=== PATIENT | male | born 1990 | race Caucasian/White ===

== ENCOUNTER 2024-11-21 12:51 | Emergency (ER) | payer BC, SELFPAY ==
[2024-11-21 13:45] VITALS: BP 132/81; PULSE 84; RESP 18; TEMP 36.9; O2SAT 96; BMI 28.8
--- NOTE | 2024-11-21 14:11 | EDNOTE_ITS ---
<Statement entered by Radha Krause MD - 11/22/24 06:02> As co-signing physician, I was present and available for consult prn. I concur with the plan and care as documented by the midlevel provider. ED Back Injury Pain RME/HPI General Chief Complaint: Back Pain/Injury Stated Complaint: MY KIDNEYS ARE HURTING Time Seen by Provider: 11/21/24 13:50 Arrival date/time: 11/21/24 12:51 Limitations: no limitations RME / HPI RME / HPI Narrative: 34-year-old male here for my kidneys are hurting . States he is having this right flank pain x 4 days. Worried because had a sharp pain on his right side and then started to sweat and wanted to vomit but did not. No diarrhea. No fever. No burning with urination. No history of diabetes. No history of abdominal surgeries. Related Data Previous Rx's ?Medication ?Instructions ?Recorded emtricitabine 200 mg-tenofovir 1 tab PO Q24H #30 tabs 11/12/20 disoproxil fumarate 300 mg tablet raltegravir 400 mg tablet 400 mg PO BID #60 tabs 11/12 IBU 800 mg tablet (ibuprofen) 800 mg PO Q6H PRN pain # 30 tabs 11/21/24 ciprofloxacin HCl 500 mg tablet 500 mg PO Q12H 10 days #20 tabs 11/21/24 (Cipro) hydrocodone 5 mg-acetaminophen 325 1 tab PO BID PRN pa in 7 days #14 11/21/24 mg tablet tabs tamsulosin 0.4 mg capsule (Flomax) 0.4 mg PO QDAY #14 caps 11/21/24 Allergies Allergy/AdvReac Type Severity Reaction Status Date / Time No Known Allergies Allergy Unverified 11/21/24 14:14 Review of Systems Review of Systems Systems Reviewed: All systems reviewed, normal except as documented Constitutional Constitutional: Denies fever(s) ED Exam General Limitations: Present no limitations General appearance: Present alert and in no apparent distress Eye Eye exam: Present normal appearance, PERRL and EOMI Respiratory Respiratory exam: Present normal lung sounds bilaterally Cardiovascular Cardiovascular exam: Present regular rate, normal rhythm and normal heart sounds Abdominal Exam Abdominal exam: Present tenderness (right cvat ) and normal bowel sounds Extremities Exam Extremities exam: Present normal inspection and full ROM Back Exam Back exam: Present normal inspection and full ROM Psychiatric Psychiatric exam: Present normal affect and normal mood Skin Skin exam: Present warm, dry, intact and normal color Course Quality Measures none Orders Category Date Time Status CT abdomen pelvis wo con Stat Exams 11/21/24 14:11 Completed CBC Stat Lab 11/21/24 15:08 Completed CMP [Comprehensive Metabolic Panel] Stat Lab 11/21/24 15:08 Completed Drug Screen,Urine Stat Lab 11/21/24 14:31 Completed UA [Urinalysis] Stat Lab 11/21/24 14:31 Completed HYDROcodone*/APAP 5/325 [[place] 5/325] Med 11/21/24 14:11 Discontinued 1 tab PO X1 ONE Ketorolac Inj [Toradol Inj] Med 11/21/24 14:11 Discontinued 30 mg IM X1 ONE Vital Signs Vital signs: Vital Signs Temperature 98.5 F 11/21/24 13:45 Pulse Rate 84 11/21/24 13:45 Respiratory Rate 18 11/21/24 13:45 Blood Pressure 132/81 H 11/21/24 13:45 Pulse Oximetry (%) 96 11/21/24 13:45 Oxygen Delivery Method Room Air 11/21/24 13:45 Back Pain / Injury Patient data External records reviewed:: [facility] previous records Clinical information provided by:: patient Social determinants that could affect healthcare access:: other (specify) (Difficulty getting appoint with PCP) Patient has the following chronic illnesses:: none How is presenting disease/condition affected by chronic disease/condition?: no chronic disease Evaluation data The following diagnostics were reviewed and interpreted by me:: lab results and radiology exam(s) Lab and/or radiology exams considered but not ordered:: all imaging considered was ordered Interpretation Summary: ct with fatty liver ua with hematuria elevated wb15 which can be reactive alt 65, consistent with findings from ct Medications / Prescriptions Medications or Prescriptions considered but not ordered:: all meds considered were given Medication administrations:: Medication Administration History Discontinued Medications Hydrocodone Bitart/Acetaminophen (Hydrocodone/Apap 5/325 Tablet) 1 tab PO X1 ONE Stop: 11/21/24 14:12 Last Admin: 11/21/24 14:45 Dose: 1 tab Documented By: OA Ketorolac Tromethamine (Ketorolac Inj 30 Mg/Ml Vial) 30 mg IM X1 ONE Stop: 11/21/24 14:12 Last Admin: 11/21/24 14:44 Dose: 30 mg Documented By: OA see above Consultations Consultation(s) initiated? (list below): No Diagnosis Differential diagnosis back pain/injury: lumbar radiculopathy, sciatica, strain of lumbar region, renal colic, pyelonephritis and discitis Most likely diagnosis given after review of the tests above:: renal colic hematuria fatty liver djd of lumbar Admission Indicated Admission indicated?: not indicated Admission Request Was there a request for admission?: No Disposition Plan Disposition Plan: Discharge Discharge Attestation Discharge Attestation: The patient and all family members were given an opportunity to ask questions and understood the discharge instructions. Discharge instructions specifically effects, indications for sooner follow up or return to the emergency department, and the expected course of current diagnosis. Patient condition: Stable Discharge Plan Plan Patient Disposition: HOME (Self Care) Discharge Disposition comment: f/u with pcp in 2-3days Prescriptions/Referrals Prescriptions/Med Rec: New hydrocodone-acetaminophen 5-325 mg tablet 1 tab PO BID MDD 2 PRN (Reason: pain) 7 Days Qty: 14 0RF ibuprofen [IBU] 800 mg tablet 800 mg PO Q6H PRN (Reason: pain) Qty: 30 0RF tamsulosin [Flomax] 0.4 mg capsule 0.4 mg PO QDAY Qty: 14 0RF ciprofloxacin HCl [Cipro] 500 mg tablet 500 mg PO Q12H 10 Days Qty: 20 0RF No Action emtricitabine-tenofovir (TDF) 200-300 mg tablet 1 tab PO Q24H Qty: 30 0RF raltegravir 400 mg tablet 400 mg PO BID Qty: 60 0RF Referrals: [facility] [Primary Care Provider] - In 1 week Problem List Clinical Impression: Acute right flank pain, Hematuria, Renal colic on right side, Fatty infiltration of liver, Degenerative joint disease (DJD) of lumbar spine Patient/Caregiver Discharge Instructions Education Materials: Abdominal Pain, ED Flank Pain, Uncertain Cause, ED Hematuria Print Language: Slovak Stand Alone Forms: [facility] Award Info., Patient Portal Info Letter PA/ADMINISTRATOR Supervising Physician PA/ADMINISTRATOR Supervising Physician: Dr. Krause
--- NOTE | 2024-11-21 14:11 | XR_ITS ---
Examination: CT abdomen and pelvis without contrast. Coronal 3-D reconstructions. Sagittal 2-D reconstructions. Date and time of exam:November 21, 2024 1425 hrs. Indications: Onset bilateral flank pain beginning 3 days ago CTDI: vol (mGy): 8.39 DLP: (mGycm): 457 Technique: Axial images of the abdomen have been obtained, 3 mm slice thickness Intravenous contrast material has not been administered. Low dose protocols were performed. One or more of the following dose reduction techniques were used; automated exposure control, adjustment of the mA and/or KV according to patient size, use of iterative reconstruction technique. Findings: Severe diffuse fatty infiltration throughout the liver Contracted gallbladder. Spleen not enlarged No pancreatic or adrenal mass. No renal or ureteral calculi, no hydronephrosis No perinephric stranding. Aorta normal size No bowel obstruction Normal appendix No diverticulitis No bladder mass or bladder calculi No prostatomegaly Moderate disc narrowing L5-S1 Impression: Hepatomegaly, 20 cm with severe diffuse fatty infiltration throughout the liver. No renal or ureteral calculi, no hydronephrosis Normal appendix No bladder mass or bladder calculi
[2024-11-21] MEDS: KETOROLAC INJ 30 MG/ML VIAL IM (14:44)
[2024-11-21] MEDS: HYDROcodone/APAP 5/325 TABLET 1 TAB PO (14:45)
[2024-11-21 15:14] LABS: Basophils # (Auto) 0.1 Thou/mm3 (0.0-0.2); Basophils % (Auto) 1 % (0-2.5); Eosinophils # (Auto) 0.6 Thou/mm3 (0.0-0.5); Eosinophils % (Auto) 4 % (0-10); Hematocrit 47.9 % (41.0-53.0); Hemoglobin 16.3 g/dL (13.5-16.0); Immature Granulocytes Auto 0.05 Thou/mm3 (0.00-0.00); Lymphocytes # (Auto) 4.4 Thou/mm3 (1.0-4.8); Lymphocytes % (Auto) 29 % (10-50); Mean Corpuscular HGB Conc 34.0 g/dl (31.0-37.0); Mean Corpuscular Hemoglobin 29.3 pg (25.0-35.0); Mean Corpuscular Volume 86 fL (80-100); Monocytes # (Auto) 1.2 Thou/mm3 (0.0-0.8); Monocytes % (Auto) 8 % (0-12); Neutrophils # (Auto) 9.2 Thou/mm3 (1.8-7.7); Neutrophils % (Auto) 59 % (37-80); Nucleated Red Blood Cell # 0.00 Thou/mm3 (0.00-0.00); Nucleated Red Blood Cell % 0 /100 WBC (0); Platelet Count 381 Thou/mm3 (140-440); RDW Standard Deviation 37.8 fL (35.1-43.9); Red Blood Count 5.57 Miln/mm3 (4.50-5.90); White Blood Count 15.6 Thou/mm3 (3.8-10.6)
[2024-11-21 15:14] LABS: Collection Type, Urine Clean Catch; Squamous Epithelial Cell,Urine 0 /hpf (0-5)
[2024-11-21 15:23] LABS: Bilirubin,Urine Negative (Negative); Blood,Urine Negative (Negative); Clarity,Urine Clear (Clear/Hazy); Color,Urine Drk-Yellow (Lt Yel-Yel); Glucose, Urine Negative (Negative); Ketones,Urine Negative (Negative); Leukocyte Esterase,Urine Negative (Negative); Nitrite,Urine Negative (Negative); PH,Urine 6.5 (5.0-7.0); Protein,Urine Negative (Neg - Trace); RBC,Urine 5 /hpf (0-3); Specific Gravity,Urine 1.007 (1.001-1.035); Urobilinogen,Urine Negative mg/dL (0.0-1.0); WBC,Urine 1 /hpf (0-5)
[2024-11-21 15:28] LABS: Amphetamine/Methamp Scrn,U Negative (Negative); Barbiturate Screen,Urine Negative (Negative); Benzodiazepines Screen,Urine Negative (Negative); Benzoylecgonine Screen, Ur Negative (Negative); Fentanyl Screen,Urine Negative (Negative); Opiate Screen,Urine Negative (Negative); THC Screen,Urine Positive (Negative)
[2024-11-21 15:35] LABS: Alanine Aminotransferase 62 U/L (10-49); Albumin, Serum 4.8 gm/dL (3.5-5.0); Albumin/Globulin Ratio 1.7 (1.2-2.2); Alkaline Phosphatase 90 U/L (46-116); Anion Gap 9 (7-16); Aspartate Amino Transferase 34 U/L (0-34); BUN/Creatinine Ratio 9 Ratio (12-20); Bilirubin,Total 0.5 mg/dL (0.3-1.2); Blood Urea Nitrogen 8 mg/dL (9-23); Calcium 9.5 mg/dL (8.3-10.6); Calcium (Corrected) 9.5 mg/dL (8.5-10.1); Carbon Dioxide 26.6 mMol/L (20.0-31.0); Chloride 102 mMol/L (98-107); Creatinine (Component) 0.9 mg/dL (0.6-1.3); Estimated Creatinine Clearance 122.4 mL/min (>60); Globulin 2.8 gm/dL (2.3-3.5); Glucose 91 mg/dL (74-106); Osmolality,Calculated 273 (275-295); Potassium 4.2 mMol/L (3.4-5.1); Sodium 138 mMol/L (136-145); Total Protein 7.6 gm/dL (5.7-8.2); eGFR > 60 See Note
[2024-11-21 16:07] VITALS: BP 138/91; PULSE 74; RESP 18; TEMP 36.6; O2SAT 98
== END 2024-11-21 17:27 | disposition home or self-care (01) ==
PROVIDERS: Physician Assistant; Emergency Provider Emergency Medicine; PCP Nurse Practitioner Family
DX: M51.369 Other intervertebral disc degeneration, lumbar region without mention of lumbar back pain or lower extremity pain (principal); N23 Unspecified renal colic; K76.0 Fatty (change of) liver, not elsewhere classified; R31.9 Hematuria, unspecified
CPT/HCPCS: 36415; 74176; 80053; 80307; 81001; 85025; 96372; 99284; J1885; A9270